=== PATIENT | female | born 1970 | race Caucasian/White ===

== ENCOUNTER 2021-09-14 17:00 | Emergency (ER) | payer OTHER ==
[~2021-09-14 17:00] MED LIST: PENVEE K 500 M500 MG PO
[2021-09-14 19:28] LABS: HEMOGLOBIN 14.9 gm/dl (12.3-15.3); RED BLOOD COUNT 5.01 M/UL (4.00-5.10)
[2021-09-14 19:44] LABS: BUN/CREATININE RATIO 18 (0-10)
[2021-09-14] MEDS ORDERED: TORADOL 10 MG T10 MG PO (20:19)
== END 2021-09-14 20:25 | disposition home or self-care (01) ==
LOC: ER1 17:00
PROVIDERS: Physician Assistant
DX: R10.9 Unspecified abdominal pain (principal); M54.50 Low back pain, unspecified; Z91.040 Latex allergy status; Z91.048 Other nonmedicinal substance allergy status
CPT/HCPCS: 80053; 81001; 83690; 85025; 87086; 96374; 99284; J1885